=== PATIENT | female | born 1980 | race Caucasian/White ===

== ENCOUNTER → 2016-05-04 | Outpatient (CLI) | payer OTHER ==
--- NOTE | 2016-05-04 16:16 | US ---
Dear Dr. Alvarez, Thank you for sending your patient, Milli Hou, to us for a follow-up US to assess interval growth and the placenta. As you know, the patient is a 35 y.o. G1, P0 at 31 weeks and 2 days with an EDC of 07/04/16 based on a 9 week US. Her is complicated by AMA. Milli reports being awakened from sleep early this morning with intermittent, sharp abdominal pains. These pains have persisted over the course of the day. The pains do not come at regular intervals and seem to shoot from the fundus to her pelvis. She denies any vaginal bleeding, abdominal trauma, or l eakage of fluid. She reports regular movement. She denies any fever, chills, or abdominal tende rness. Milli was seen in your office where she reports having a reassuring NST and a cervical check w hich was significant for a long, closed cervix. In our clinic, she is normotensive without tachycardi a. She has no abdominal tenderness and no palpable contractions on exam. Genetic Screening: NIPT reassuring The patient denies any uterine contractions, vaginal bleeding, or loss of fluid. She reports excellen t movement. Today, she is without complaints. US FINDINGS: Number of fetuses: 1 Placental location: Fundal, left lateral, no previa. There is no evidence of retroplacental clot. presentation: Cephalic Cervix: 3.0 cm, transabdominally MVP: 4.2 cm Measurements: Biparietal diameter: 83 mm, 33 weeks 3 days Head circumference: 302 mm, 33 weeks 4 days Abdominal circumference: 288 mm, 32 weeks 6 days Femur length: 57 mm, 29 weeks 6 days Humerus length: 53 mm, 31 weeks 1 days Transcerebellar diameter: Suboptimal Cerebral Lateral Ventricle: 5 mm Cisterna Magna: Suboptimal Heart Rate: 140 bpm Average ultrasound age: 32 weeks 3 days Estimated weight: 1882 g weight percentile: 63 % Anatomy: anatomy was previously assessed. Today the following structures were visualized and appeared n ormal: lateral ventricles, 4CH view and outflow tracts, stomach, kidneys, and bladder. IMPRESSION: 1. Growth: The fetus measures appropriate for gestational age, measuring at a normal weight and perc entile. Visualization of the fetus continues to reveal no overt structural anomalies. There is eviden ce of normal amniotic fluid, and movement was seen during the examination. 2. Abdominal Pain: The placenta appears intact without evidence of a retroplacental clot. A transvagi nal US to assess cervical length was not performed because the patient reported an NST without preter m contractions and a closed cervix on exam in your office. No funneling was seen on transabdominal US . In our clinic, the patient had normal vital signs and no abdominal tenderness concerning for chorio amnionitis. I reviewed with Milli that she should go to L&D immediately for any vaginal bleeding, con tractions, leakage of fluid, decreased movement, fever/chills, or nausea and vomiting. We did n ot attempt to visualize the adnexa or appendix on today's US. Thank you again for sending this patient to see us today. Approximately 15 minutes were spent with th is patient today with 12 minutes of this time spent in direct face to face counseling regarding today 's US findings and our recommendations. Please contact me with any questions at . Lorna Barnett MD Maternal- Medicine
--- NOTE | 2016-05-04 17:13 | US ---
Follow Up Obstetrical Sonography Clinical History: 35-year-old female with advanced maternal age, presenting for biometry to as sess growth parameters. Technique: A curvilinear 5-MHz transducer was used to sonographically evaluate the fetus and the alison centa. M-mode Doppler was used. Dr. Lorna Barnett was present. A cine clip was acquired through the placenta. LMP: September 28, 2015, indicating an age of 31 weeks, 2 days, and an estimated date of delivery of July 04, 2016. Comparison Study: Obstetrical sonography, dated March 13, 2016. Findings: There is a single viable intrauterine gestation once again identified, with the fetus curr ently vertex in presentation. The placenta is fundal and left lateral in position, with no previa or evidence of retroplacental hemorrhage. The amniotic fluid volume is appropriate, with a maximal markus tical pocket of 4.2 cm. The maternal cervical length is normal, measured transabdominally at 3.0 cm. The heart rate is 140 bpm. A anatomic survey has been performed in the past. On today's study, the visualized supratentor ial structures are normal, with a lateral ventricular diameter of 4.8 mm. A four-chambered heart, wi th interventricular septum and right and left ventricular outflow tracts, are seen. The stomach, rig ht and left kidneys, and urinary bladder are noted. biometry is as follows: The biparietal diameter is 83 mm, corresponding to an age of 33 weeks, 3 days, +/- 3 weeks, 1 day, wh ich is at the 93rd percentile. The head circumference is 302 mm, corresponding to an age of 33 weeks, 4 days, +/- 3 weeks, 0 days, w hich is at the 74th percentile. The abdominal circumference is 288 mm, corresponding to an age of 32 weeks, 6 days, +/- 3 weeks, 0 da ys, which is at the 86th percentile. The femur length is 57 mm, corresponding to an age of 29 weeks, 6 days, +/- 2 weeks, 1 day, which is at the 6th percentile. The humerus length is 53 mm, corresponding to an age of 31 weeks, 1 day. The composite gestational age is 32 weeks, 3 days. The estimated weight is 1882 gm, +/- 275 gm , which is 4 lbs., 2 oz., +/- 10 ounces, which is at the 63rd percentile. The head circumference to abdominal circumference ratio is normal, measuring 1.05. The femur length to biparietal diameter ratio is 68%, and the femur length to abdominal circumference ratio is 20%. Impression: There is a single viable intrauterine gestation, with appropriate interval growth since March 13, 2016, and no overt structural anomaly is identified. The amniotic fluid volume is appropriate. Please refer to Dr. Barnett's separate assessments and specific recommendations for follow up. E:PARAM/skye
== END ==
LOC: FIMAGING 14:40
PROVIDERS: ATTEND Obstetrics & Gynecology
DX: O09.513 Supervision of elderly primigravida, third trimester (principal); Z3A.32 32 weeks gestation of pregnancy; R10.9 Unspecified abdominal pain

== ENCOUNTER → 2016-06-15 | Outpatient (CLI) | payer OTHER | LOC: FIMAGING 12:58 | PROVIDERS: ATTEND Obstetrics & Gynecology | DX: O09.513 Supervision of elderly primigravida, third trimester (principal); Z3A.37 37 weeks gestation of pregnancy ==

== ENCOUNTER 2016-06-23 14:41 | Inpatient (IN) | payer OTHER ==
[2016-06-23] MEDS ORDERED: fentaNYL 100 MCG/2 ML INJ IV PRN (15:00)
[2016-06-23 15:09] LABS: % IMMATURE GRANULYOCYTES 0.6 % (0.0-1.1); ABSOLUTE IMMATURE GRANULOCYTES 0.11 10^3/uL (0.00-0.10); ADD DIFF? NO; ADD MORPH? NO; ADD SCAN? NO; ATYPICAL LYMPHOCYTE FLAG 0 (0-99); FRAGMENT RBC FLAG 0 (0-99); HEMATOCRIT 40.1 % (38.0-47.0); HEMOGLOBIN 13.8 g/dL (12.6-16.3); LEFT SHIFT FLG 0 (0-99); LIPEMIA HEMOLYSIS FLAG 90 (0-99); MEAN CELL HEMOGLOBIN 30.9 pg (27.9-34.1); MEAN CELL HEMOGLOBIN CONCENTR. 34.4 g/dL (32.4-36.7); MEAN CELL VOLUME 89.7 fL (81.5-99.8); MEAN PLATELET VOLUME 12.5 fL (8.7-11.7); PLATELET CLUMPS FLAG 0 (0-99); PLATELET COUNT 214 10^3/uL (150-400); RED BLOOD CELL COUNT 4.47 10^6/uL (4.18-5.33); RED CELL DISTRIBUTION WIDTH 13.6 % (11.5-15.2)
[2016-06-23] MEDS ORDERED: TERBUTALINE SULFATE 1 MG/ML VIAL IV PRN (15:21)
[2016-06-23] MEDS ORDERED: LIDOCAINE 1% 30 ML SDV SC PRN (15:21)
[2016-06-23] MEDS ORDERED: OXYTOCIN/RINGERS LACTATE 1,000 ML IV PRN (15:21)
[2016-06-23] MEDS ORDERED: LR 1,000 ML IV PRN (15:21)
[2016-06-23] MEDS ORDERED: EPSOM SALT 454 GM TP PRN (15:21)
[2016-06-23] MEDS ORDERED: OLIVE OIL 118 ML BTL MISC PRN (15:21)
[2016-06-23] MEDS ORDERED: fentaNYL 2MCG/ML/BUP 0.1% RTU 100 ML BAG EP ONE (16:07)
[2016-06-23] MEDS ORDERED: BUPIVACAINE 0.25% 30 ML SDV ONE (16:08)
[2016-06-23] MEDS ORDERED: PHENYLEPHRINE HCL 100 MCG/ML SYR ONE (16:08)
[2016-06-23] MEDS ORDERED: fentaNYL 100 MCG/2 ML INJ ONE (16:09)
[2016-06-23] MEDS ORDERED: ONDANSETRON 4 MG/2 ML VIAL IVP PRN (17:15)
[2016-06-23] MEDS ORDERED: PHENYLEPHRINE HCL 100 MCG/ML SYR IVP PRN (17:15)
--- NOTE | 2016-06-23 17:19 | PREANESOB ---
Obstetric Pre-Anesthesia Info - General Info Proposed Procedure: Labor and delivery. : 1 Para: 0 WBD: 38 - Info Status: Full Term Monitors: External FHR Baseline (bpm): 140 FHR Pattern: Reassuring - Labor Status Cervical Dilation per last OB SVE: 3 Indications for Labor Analgesia: Pain Control Labor Epidural: Proposed Anesthesia ROS: History of asthma and migraine headaches. Uses albuterol inhaler rarely. Allergies/Adverse Reactions: Allergy/AdvReac Type Severity Reaction Status Date / Time No Known Allergies Allergy Unverified 06/23/16 15:08 Home Medications: Medication Instructions Recorded Vit27&Calcium/Iron/FA 1 each PO DAILY 06/23/16 [ Rx 1 Tablet (RX)] Visit Medications: Generic Name Dose Route Start Last Admin Trade Name Freq PRN Reason Stop Dose Admin Fentanyl 50 - 100 mcg 06/23/16 15:00 06/23/16 15:08 Sublimaze IV 07/03/16 14:59 100 mcg ONCE PRN Administration PAIN, SEVERE Lactated Ringer's 1,000 mls @ 0 mls/hr 06/23/16 15:21 Lr IV 12/20/16 15:20 PRN PRN SEE PROTOCOL CONDITIONS Protocol Per Protocol Oxytocin/Lactated Ringer's 1,000 mls @ 150 mls/hr 06/23/16 15:21 Pitocin 20 Units/Lr (Premix) IV PRN PRN Post- bleeding Ibuprofen 600 mg 06/23/16 15:21 Motrin PO 12/20/16 15:20 Q6HRS PRN post , inflammation Lidocaine HCl 30 ml 06/23/16 15:21 Lidocaine Hcl 1% SC 12/20/16 15:20 ONCE PRN Episiotomy Magnesium Sulfate 454 gm 06/23/16 15:21 Epsom Salt TP 12/20/16 15:20 PRN PRN perineal discomfort [place] Oil 118 ml 06/23/16 15:21 Sweet Oil MISC 12/20/16 15:20 ONCE PRN preneal massage Terbutaline Sulfate 0.25 mg 06/23/16 15:21 Brethine IV 12/20/16 15:20 ONCE PRN Tachysystole Discontinued Medications Generic Name Dose Route Start Last Admin Trade Name Freq PRN Reason Stop Dose Admin Bupivacaine HCl Confirm 06/23/16 16:08 Sensorcaine 0.25% Sdv Administered 06/23/16 16:09 Dose 30 ml .ROUTE .STK-MED ONE Fentanyl Confirm 06/23/16 16:09 Sublimaze Administered 06/23/16 16:10 Dose 100 mcg .ROUTE .STK-MED ONE Fentanyl/Bupivacaine HCl Confirm 06/23/16 16:07 Fentanyl/Bupivacaine/Ns 2 Mcg/Ml 0.1% (Premix Administered 06/23/16 16:08 Dose 100 ml EP .STK-MED ONE Phenylephrine HCl Confirm 06/23/16 16:08 Jones-Synephrine Administered 06/23/16 16:09 Dose 1,000 mcg .ROUTE .STK-MED ONE - Anesthesia History Response to Local Anesthetics: Normal - Social History Substance Use/Abuse: Denies - Focused Exam Blood Pressure: 140/87 Heart Rate: 91 Height/Weight (Nursing): Height 177.8 cm Weight 76.657 kg Physical Exam: Within normal limits. Respiratory: lungs clear ASA Status: II Labs: 06/23/16 15:00 Patient ABO/Rh O POSITIVE 06/23/16 15:00 - Plan Anesthetic Plan: CSE Consent Signed and on Chart: Yes Patient/Guardian Understands and Agrees to Plan: Yes
--- NOTE | 2016-06-23 17:29 | POSTANESTH ---
Post Anesthetic Evaluation Cardiovascular Status: Normal, Stable Respiratory Status: Normal, Stable, Similar to Pre-op Cond. Level of Consciousness/Mental Status: Can Participate in Eval, Alert and Oriented Pain Control: Adequate, Prn Tx Ordered Nausea/Vomiting Control: Adequate, Prn Tx Ordered Complications Possibly Related to Anesthesia: None Noted (Tolerated CSE well, stable, comfortable.)
[2016-06-23] MEDS ORDERED: LR 500 ML IV SCH (17:30)
[2016-06-23] MEDS ORDERED: fentaNYL 2MCG/ML/BUP 0.1% RTU 100 ML EP SCH (17:30)
--- NOTE | 2016-06-23 17:55 | PDGENHP ---
History and Physical - Chief Complaint contractions - History of Present Illness Pt is a 35 y/o at 38+3 weeks EGA admitted in active labor after cervical change from 3cm in clinic to 5-6cm at 1630. She got her epidural and is now very comfortable. Pt has indicated an interest in PP BTL; has not confirmed yet if he will proceed with vasectomy. No lof/vb and good FM. History Information - Allergies/Home Medication List Allergies/Adverse Reactions: No Known Allergies Allergy (Unverified 06/23/16 15:08) Home Medications: Vit27&Calcium/Iron/FA [ Rx 1 Tablet (RX)] 1 each PO DAILY 06/23 [Last Taken Unknown] I have personally reviewed and updated: medical history, social history, surgical history Past Medical History: asthma, hayfever, migraines, hx right ovarian cyst - Surgical History Additional surgical history: LEEP - Social History Smoking Status: Never smoked Review of Systems ROS: 10pt was reviewed & negative except for what was stated in HPI & below Physical Exam Temp Pulse Resp BP Pulse Ox 91 140/87 H 06/23/16 17:27 06/23/16 17:27 Constitutional: no apparent distress, appears nourished Cardiovascular: regular rate and rhythym Respiratory: no respiratory distress Gastrointestinal: normoactive bowel sounds, soft, non-tender abdomen Genitourinary: other (CX 8/C/0, AROM with meconium fluid noted. IUPC placed.) Skin: warm Lab Data & Imaging Review 06/23/16 15:00 WBC 19.27 10^3/uL (3.80-9.50) H 06/23/16 15:00 RBC 4.47 10^6/uL (4.18-5.33) 06/23/16 15:00 Hgb 13.8 g/dL (12.6-16.3) 06/23/16 15:00 Hct 40.1 % (38.0-47.0) 06/23/16 15:00 MCV 89.7 fL (81.5-99.8) 06/23/16 15:00 MCH 30.9 pg (27.9-34.1) 06/23/16 15:00 MCHC 34.4 g/dL (32.4-36.7) 06/23/16 15:00 RDW 13.6 % (11.5-15.2) 06/23/16 15:00 Plt Count 214 10^3/uL (150-400) 06/23/16 15:00 MPV 12.5 fL (8.7-11.7) H 06/23/16 15:00 Neut % (Auto) 83.4 % (39.3-74.2) H 06/23/16 15:00 Lymph % (Auto) 9.0 % (15.0-45.0) L 06/23/16 15:00 [place] % (Auto) 6.6 % (4.5-13.0) 06/23/16 15:00 Eos % (Auto) 0.2 % (0.6-7.6) L 06/23/16 15:00 Baso % (Auto) 0.2 % (0.3-1.7) L 06/23/16 15:00 Nucleat RBC Rel Count 0.0 % (0.0-0.2) 06/23/16 15:00 Absolute Neuts (auto) 16.09 10^3/uL (1.70-6.50) H 06/23/16 15:00 Absolute Lymphs (auto) 1.73 10^3/uL (1.00-3.00) 06/23/16 15:00 Absolute Monos (auto) 1.28 10^3/uL (0.30-0.80) H 06/23/16 15:00 Absolute Eos (auto) 0.03 10^3/uL (0.03-0.40) 06/23/16 15:00 Absolute Basos (auto) 0.03 10^3/uL (0.02-0.10) 06/23/16 15:00 Absolute Nucleated RBC 0.00 10^3/uL (0-0.01) 06/23/16 15:00 Immature Gran % 0.6 % (0.0-1.1) 06/23/16 15:00 Immature Gran # 0.11 10^3/uL (0.00-0.10) H 06/23/16 15:00 Patient ABO/Rh O POSITIVE 06/23/16 15:00 Antibody Screen NEGATIVE 06/23/16 15:00 Assessment & Plan Assessment: 35 y/o at 38+3 weeks EGA in active labor with meconium stained fluid Plan: 1) Patient admitted to L&D 2) Labor: Progressing well, now 8cm 3) status reassuring w/ moderate variability present and cat 1 FHT other than one single decel noted w/ AROM 4) GBS negative 5) JHONATHAN in place, pain controlled well 6) Meconium stained fluid - will start amnioinfusion now since thick, particulate meconium and once decel noted w/ AROM
[2016-06-23] MEDS ORDERED: AMMONIA AROMATIC 1 EACH AMP IH ONE (19:42)
[2016-06-23] MEDS ORDERED: LIDOCAINE 1% 30 ML SDV ONE (19:42)
[2016-06-23] MEDS ORDERED: OLIVE OIL 118 ML BTL ONE (19:42)
[2016-06-23] MEDS ORDERED: TERBUTALINE SULFATE 1 MG/ML VIAL ONE (19:42)
[2016-06-23] MEDS ORDERED: MISOPROSTOL 200 MCG TAB ONE (19:43)
[2016-06-23] MEDS ORDERED: OXYTOCIN 10 UNIT/ML VIAL ONE (19:43)
[2016-06-23 20:29] LABS: BASE EXCESS CORD -5.5 mEq/L (-13.6--3.2); CORD BLOOD PCO2 54.6 mmHg (37-60); PH ARTERIAL CORD BLOOD 7.24 (7.10-7.37)
[2016-06-23 20:35] LABS: PH VENOUS CORD BLOOD 7.31 (7.20-7.42)
[2016-06-23] MEDS: IBUPROFEN 600 MG TAB PO PRN (20:56)
[2016-06-23] MEDS ORDERED: SIMETHICONE 80 MG TAB CHEW PO PRN (21:24)
[2016-06-23] MEDS ORDERED: ACETAMINOPHEN 325 MG TAB PO PRN (21:24)
[2016-06-23] MEDS ORDERED: HYDROCORTISONE 0.5% CREAM TP PRN (21:24)
--- NOTE | 2016-06-23 21:24 | OBPROC ---
- Labor and Delivery Onset of Contractions Date: 06/23/16 Onset of Contractions Time: 13:30 Onset of Contractions Type: Spontaneous Rupture of Membranes Date: 06/23/16 Rupture of Membranes Time: 17:41 Rupture of Membranes Type: Artificial Amniotic Fluid Color: Meconium Stained-Heavy Dilation Complete Time: 18:38 Delivery Type: Vacuum Placenta Delivery Date: 06/23/16 Placenta Delivery Time: 20:16 Episiotomy/Laceration: 3rd Degree, Other (Specify) (small bilateral labial) Repair: 2-0, 3-0, Vicryl EBL: 300 cc Complications: None Cord Gases: Cord Gases Cord Blood PCO2 54.6 mmHg (37-60) 06/23/16 20: Cord Base Excess -5.5 mEq/L (-13.6--3.2) 06/23/16 20: Cord ABG pH 7.24 (7.10-7.37) 06/23/16 20: Cord VBG pH 7.31 (7.20-7.42) 06/23/16 20:17 - Medications Labor Augmentation/Induction Meds Used: None Anesthesia: Epidural - [place] Info A Delivery Date: 06/23/16 Delivery Time: 20:13 Sex of Infant: Male [place] Weight (gm): 3602 g Score (1 Min): 7 Score (5 Min): 8 (I pushed with the patient in many different positions. The FHT started to show tachycardia with decreased variability, so she was counseled on the need for assisted vaginal delivery with either forceps or vacuum - risks of both were reviewed to include risks of vaginal tears; cephalohematoma, subgaleal hemorrhage w/ vaccuum; facial lacerations or nerve compression w/ forceps. She desired vacuum. Additional staff w/ EXPLORATION ENGINEER and RN's called to the room. Variability improved and we continued with spontaneous pushing. Then, late decels were seen and worsening tachycardia, so recommended vacuum. Benton had just been removed. Position NAVARRO. Kiwi vaccuum applied along saggital suture, pressure applied to the green zone w/ next push, and traction applied. Excellent descent noted w/ three pushes, no pop-offs noted, baby descended to . Patient then pushed w/o the vacuum and delivered the baby. A cry was noted, baby placed on maternal abdomen, then EXPLORATION ENGINEER wanted to take baby to the warmer w/in a minute. Cord clamped x 2 and cut, and baby taken to the warmer. Cord gases and blood obtained. Placenta delivered easily. Uterus massaged and firm. Cervix visualized and intact. Perineum examined, rectal exam performed, 3rd degree noted, no extension into rectum. U- shaped tear into inner labia noted bilaterally. Sphincter reapproximated with 4 figure of eight stitches using PISA method. Then, U-shaped extensions were repaired with running, locked 2-0 vicryl. Remaining 2nd degree repaired in usual fashion using crown stitch. Small labial tears repaired with interrupted 3-0 vicryl. All hemostatic. Baby taken to the nursery and later found to have a pneumothorax. Cord gases reassuring.)
[2016-06-24] MEDS: HYDROCODONE/APAP 5/325 TAB PO PRN ×5 (00:48→20:47)
[2016-06-24] MEDS: IBUPROFEN 600 MG TAB PO PRN ×4 (02:46→21:54)
--- NOTE | 2016-06-24 08:18 | OBPROG ---
OBG Progress Note Assessment/Plan: Assessment: 35 y/o PPD#1 s/p VAVD (delivered > 8pm) for NRFHT - mother and baby doing well at bedside Plan: Continue routine PP care RH+/RI Baby at bedside - pneumothorax resolved. 06/24/16 08:19 Subjective: Pt ambulating, tolerating regular diet, voiding spontaneously, lochia diminishing. Objective: 06/24/16 02:55 Patient ABO/Rh O POSITIVE 06/23/16 15:00 Temp Pulse Resp BP Pulse Ox 36.1 C 72 15 108/68 95 06/24/16 08:04 06/24/16 08:04 06/24/16 08:04 06/24/16 08:04 06/24/16 08:04 Uterine Position/Fundal Height: At Umbilicus Uterine Tone: Firm with Massage ICD10 Worksheet Patient Problems: Problems Problem Status Onset Status post vacuum-assisted vaginal delivery Acute - ICD10 Problem Qualifiers (1) Status post vacuum-assisted vaginal delivery
[2016-06-24] MEDS: DOCUSATE SODIUM 100 MG CAP PO PRN ×2 (09:34→20:48)
[2016-06-24] MEDS ORDERED: HYDROCODONE/APAP 5/325 TAB ONE (16:48)
[2016-06-25] MEDS: HYDROCODONE/APAP 5/325 TAB PO PRN ×6 (01:22→23:44)
[2016-06-25] MEDS: IBUPROFEN 600 MG TAB PO PRN ×4 (03:44→22:42)
[2016-06-25 08:52] VITALS: O2SAT 96
[2016-06-25] MEDS ORDERED: MAGNESIUM HYDROXIDE 30 ML UDCUP PO PRN (11:07)
[2016-06-25] MEDS ORDERED: BISACODYL 10 MG SUPP PR PRN (11:07)
[2016-06-25] MEDS ORDERED: POLYETHYLENE GLYCOL 3350 17 GM PKT PO PRN (11:07)
[2016-06-25] MEDS ORDERED: SENNOSIDES/DOCUSATE SODIUM TAB PO SCH ×2 (12:17→21:00)
--- NOTE | 2016-06-25 12:26 | OBPROG ---
OBG Progress Note Assessment/Plan: Assessment: 35 y/o PPD#2 s/p VAVD (delivered > 8pm) for NRFHT - mother and baby doing well at bedside Plan: Continue routine PP care RH+/RI Baby at bedside - pneumothorax resolved. 3rd degree laceration - Perineum c/d/i, will start bowel protocol 06/25/16 12:26 Subjective: Pt doing well, no complaints. Ambulating, voiding, passing flatus, tolerating regular diet, lochia diminishing, and breast feeding progressing. Pt feeling rectal pressure, but controlled well with motrin and norco. Objective: 06/24/16 02:55 Patient ABO/Rh O POSITIVE 06/23/16 15:00 Temp Pulse Resp BP Pulse Ox 36.9 C 70 15 92/60 L 96 06/25/16 08:00 06/25/16 08:00 06/25/16 08:00 06/25/16 08:00 06/25/16 08:00 Uterine Position/Fundal Height: Umbilicus -1 Uterine Tone: Firm - Physical Exam General Appearance: WD/WN, alert, no apparent distress Respiratory: lungs clear Cardiac/Chest: regular rate, rhythm Genitourinary: laceration (c/d/i, no mass or swelling) ICD10 Worksheet Patient Problems: Problems Problem Status Onset Status post vacuum-assisted vaginal delivery Acute - ICD10 Problem Qualifiers (1) Status post vacuum-assisted vaginal delivery
[2016-06-25] MEDS: SENNOSIDES/DOCUSATE SODIUM TAB PO SCH ×2 (12:58→20:27)
[2016-06-25] MEDS: LACTULOSE 20 GM/30 ML UDCUP PO SCH ×2 (18:22→21:21)
[2016-06-26] MEDS: HYDROCODONE/APAP 5/325 TAB PO PRN (06:17)
[2016-06-26] MEDS: IBUPROFEN 600 MG TAB PO PRN (06:18)
--- NOTE | 2016-06-26 08:26 | OBGCSDC ---
General Delivery Information - General Info : 1 Para: 1 Delivery Date: 06/23/16 Delivery Time: 20:13 Delivery Physician/CNM: Dagmar Alvarez Labs: Patient ABO/Rh O POSITIVE 06/23/16 15:00 Hct 36.1 % (38.0-47.0) L 06/24/16 02:55 - Info Infant A [place] Weight (gm): 3602 g Sex of Infant: Male Score (1 Min): 7 Score (5 Min): 8 (I pushed with the patient in many different positions. The FHT started to show tachycardia with decreased variability, so she was counseled on the need for assisted vaginal delivery with either forceps or vacuum - risks of both were reviewed to include risks of vaginal tears; cephalohematoma, subgaleal hemorrhage w/ vaccuum; facial lacerations or nerve compression w/ forceps. She desired vacuum. Additional staff w/ ASSISTANT TERMINAL MANAGER and RN's called to the room. Variability improved and we continued with spontaneous pushing. Then, late decels were seen and worsening tachycardia, so recommended vacuum. Benton had just been removed. Position NAVARRO. Kiwi vaccuum applied along saggital suture, pressure applied to the green zone w/ next push, and traction applied. Excellent descent noted w/ three pushes, no pop-offs noted, baby descended to . Patient then pushed w/o the vacuum and delivered the baby. A cry was noted, baby placed on maternal abdomen, then ASSISTANT TERMINAL MANAGER wanted to take baby to the warmer w/in a minute. Cord clamped x 2 and cut, and baby taken to the warmer. Cord gases and blood obtained. Placenta delivered easily. Uterus massaged and firm. Cervix visualized and intact. Perineum examined, rectal exam performed, 3rd degree noted, no extension into rectum. U- shaped tear into inner labia noted bilaterally. Sphincter reapproximated with 4 figure of eight stitches using PISA method. Then, U-shaped extensions were repaired with running, locked 2-0 vicryl. Remaining 2nd degree repaired in usual fashion using crown stitch. Small labial tears repaired with interrupted 3-0 vicryl. All hemostatic. Baby taken to the nursery and later found to have a pneumothorax. Cord gases reassuring.) Vaginal - Diagnosis Labor: Spontaneous Rupture of Membranes Type: Artificial Repair: 2-0, 3-0, Vicryl Complications: None - Operations/Procedures Delivery Type: Vacuum - Hospital Course Antepartum: Uncomplicated care. s/p tdap and flu vaccines. Normal genetic screening Intrapartum: VAVD for tachycardia. meconium. 3rd deg laceration. pneumothorax, resolved. : Meeting all milestones for discharge on PPD#3. S/p tdap and flu. Rh+, rub imm. Perineal care discussed. F/u 2 weeks - Delivery EBL: 300 cc Anesthesia: Epidural Discharge Information - Discharge Information Discharge Medications: Ibuprofen, Vicodin, Other (Specify) (APNO ,Miralax, colace) Condition: Good Instruction/Follow Up: Two Weeks Discharge Physician/CNM: Najma Diaz Discharge Date: 06/26/16
[2016-06-26 08:33] VITALS: BP 116/76; PULSE 65; RESP 16; TEMP 98.2
[2016-06-26] MEDS: SENNOSIDES/DOCUSATE SODIUM TAB PO SCH (15:33)
[2016-06-26] MEDS: LACTULOSE 20 GM/30 ML UDCUP PO SCH ×2 (15:59→16:01)
== END 2016-06-26 16:45 | disposition home or self-care (01) | DRG 775 ==
LOC: OBSVTOIN 14:41 → FLD 14:41 → FOB 23:30
PROVIDERS: ADMIT Obstetrics & Gynecology; ATTEND Obstetrics & Gynecology
PROC: 10D07Z6 Extraction of Products of Conception, Vacuum, Via Natural or Artificial Opening (ICD-10-PCS; principal; 2016-06-23)
PROC: 0KQM0ZZ Repair Perineum Muscle, Open Approach (ICD-10-PCS; 2016-06-23)
PROC: 0DQR0ZZ Repair Anal Sphincter, Open Approach (ICD-10-PCS; 2016-06-23)
PROC: 0U7C7ZZ Dilation of Cervix, Via Natural or Artificial Opening (ICD-10-PCS; 2016-06-23)
DX: O77.0 Labor and delivery complicated by meconium in amniotic fluid (principal); O76 Abnormality in fetal heart rate and rhythm complicating labor and delivery; O70.20 Third degree perineal laceration during delivery, unspecified; Z3A.38 38 weeks gestation of pregnancy; Z37.0 Single live birth
CPT/HCPCS: J2370; J2590; J3010; J3105